=== PATIENT | male | born 1980 | race Caucasian/White ===

== ENCOUNTER 2016-08-31 11:05 | Inpatient (IN) | payer OTHER ==
[~2016-08-31] VITALS: Ht 185.4 cm; Wt 100.3 kg
[2016-09-14] MEDS ORDERED: SODIUM CHLORID 0.9% 500 ML IV PRN (05:45)
[2016-09-14] MEDS ORDERED: VANCOMYCIN 1000 MG/NS 250 ML (for <70 kg) IV SCH ×2 (05:45)
[2016-09-14] MEDS ORDERED: ceFAZolin 2 GM PREMIX 50 ML IV SCH ×2 (05:45→16:00)
[2016-09-14] MEDS ORDERED: METOPROLOL TARTRATE 25 MG TAB PO PRN (05:45)
[2016-09-14] MEDS ORDERED: CHLORHEXIDINE GLUCONATE 2 % 1 PACK (2 CLOTHS) TOPICAL PRN (05:45)
[2016-09-14] MEDS ORDERED: INSULIN HUMAN REGULAR 1,000 UNITS/10 ML VIAL SQ PRN (05:45)
[2016-09-14] MEDS ORDERED: CHLORHEXIDINE GLUCONATE 4% SOLN 120 ML BTL TOPICAL SCH (05:45)
[2016-09-14] MEDS ORDERED: LACTATED RINGER'S 1000 ML IV PRN (05:45)
[2016-09-14] MEDS ORDERED: POVIDONE IODINE 5% (ANTISEPSIS KIT) 4 APPLICATIONS EACH NARE PRN (05:45)
[2016-09-14] MEDS ORDERED: ASPI325T PO (06:24)
[2016-09-14] MEDS ORDERED: TRAM50TA PO (06:24)
[2016-09-14 06:32] VITALS: BP 123/76; PULSE 63; RESP 16; TEMP 98; O2SAT 98
[2016-09-14] MEDS ORDERED: GENTAMICIN SULFATE 80 MG/2 ML VIAL ONE ×2 (07:15)
[2016-09-14] MEDS ORDERED: fentaNYL CITRATE 250 MCG/5 ML AMP ONE (07:34)
[2016-09-14] MEDS ORDERED: ACETAMINOPHEN 1000 MG/100 ML VIAL IV ONE (07:34)
[2016-09-14] MEDS ORDERED: VANCOMYCIN HCL 1000 MG VIAL ONE (08:10)
[2016-09-14] MEDS ORDERED: HYDR-3366 PO (08:43)
[2016-09-14] MEDS ORDERED: SODIUM CHLORIDE 0.9% FLUSH 5 ML FLUSH IVF PRN (08:45)
[2016-09-14] MEDS ORDERED: diphenhydrAMINE HCL 25 MG CAP PO PRN (08:45)
[2016-09-14] MEDS ORDERED: ONDANSETRON HCL 4 MG/2 ML VIAL IVP PRN (08:45)
[2016-09-14] MEDS ORDERED: MORPHINE SULFATE 4 MG/ML INJ IV PUSH PRN (08:45)
[2016-09-14] MEDS ORDERED: Post-op Orders (for Pharmacy) MISC XX ONE (08:45)
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
[2016-09-14] MEDS: SODIUM CHLORIDE 0.9% FLUSH 5 ML FLUSH IVF SCH ×2 (09:00→19:37)
[2016-09-14] MEDS ORDERED: DO NOT ADM ANY ANTICOAGULANT DRUGS PRN (09:15)
[2016-09-14] MEDS ORDERED: *MEPERIDINE 25 MG INJ VIAL PERIprocedural Use ONLY ONE (09:19)
[2016-09-14] MEDS: LACTATED RINGER'S 1000 ML INJ 1,000 ML IV SCH ×2 (10:00→22:27)
[2016-09-14] MEDS ORDERED: *morphine SULFATE 8 MG/ML PERIprocedure ONLY ONE ×2 (10:03→10:14)
[2016-09-14] MEDS ORDERED: diphenhydrAMINE HCL 50 MG/ML VIAL ONE (10:19)
[2016-09-14] MEDS ORDERED: DEXAMETHASONE SOD PHOS 4 MG/ML VIAL ONE (10:23)
[2016-09-14] MEDS ORDERED: DEXAMETHASONE SOD PHOS 4 MG/ML VIAL IV ONE (11:00)
[2016-09-14] MEDS ORDERED: diphenhydrAMINE HCL 50 MG/ML VIAL IV PUSH PRN (11:30)
[2016-09-14] MEDS: KETOROLAC TROMETHAMINE 30 MG/ML (IVP) VIAL IV PUSH SCH ×2 (12:00→19:36)
[2016-09-14] MEDS ORDERED: NEOSTIGMINE 3 MG/3 ML SYR IV ONE (12:03)
[2016-09-14] MEDS ORDERED: PROPOFOL 200 MG/20 ML AMP IV ONE (12:03)
[2016-09-14] MEDS ORDERED: ONDANSETRON HCL 4 MG/2 ML VIAL IV PUSH ONE (12:04)
[2016-09-14 12:58] VITALS: BP 122/75; PULSE 82; RESP 18; TEMP 97.3; O2SAT 92
--- NOTE | 2016-09-14 13:33 | RADRPT ---
EXAM DATE/TIME: 09/14/2016 08:33 [place] COMPARISON: FLUOROSCOPY PORTABLE UP TO 1HR, September 14, 2016, 0:00. INDICATIONS : Hardware removal right clavicle. MEDICAL HISTORY : None. SURGICAL HISTORY : ORIF right clavicle. ENCOUNTER: Initial ACUITY: 1 day PAIN SCORE: Non-responsive. LOCATION: Right clavicle. FINDINGS: There are surgical clips seen in the soft tissues. No residual hardware is identified within the dist al right clavicle. The distal right clavicle is somewhat irregular in appearance. CONCLUSION: 1. No residual hardware identified. Cosme Soriano MD on September 14, 2016 at 13:30 Board Certified Radiologist. This report was verified electronically.
[2016-09-14] MEDS: ACETAMINOPHEN/HYDROcodone 325 MG/10 MG TAB PO PRN ×3 (14:00→22:27)
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
[2016-09-14] MEDS ORDERED: Vancomycin Consult Pharmacy 1 EA OTHER SCH (14:45)
[2016-09-14] MEDS: HYDROmorphone HCL PF 1 MG/ML VIAL IV PUSH PRN ×3 (15:46→23:31)
[2016-09-14 16:00] VITALS: BP 111/62; PULSE 73; RESP 18; TEMP 97.1; O2SAT 92
[2016-09-14] MEDS: CEFEPIME INJ 2,000 MG in SODIUM CHLORIDE 0.9% INJ 100 ML IV SCH ×2 (16:08→22:27)
[2016-09-14] MEDS: VANCOMYCIN INJ 1,500 MG in SODIUM CHLORID 0.9% 500 ML INJ 500 ML IV SCH (17:24)
[2016-09-14] MEDS ORDERED: VANCOMYCIN INJ 1,000 MG in SODIUM CHLOR 0.9% 250 ML INJ 250 ML IV SCH (18:00)
[2016-09-14 20:00] VITALS: BP 103/60; PULSE 78; RESP 17; TEMP 97.8; O2SAT 93
[2016-09-15] VITALS: BP 110/59; PULSE 70; RESP 17; TEMP 97.1; O2SAT 95
[2016-09-15 04:00] VITALS: BP 115/64; PULSE 76; RESP 17; TEMP 96.5; O2SAT 95
[2016-09-15] MEDS: KETOROLAC TROMETHAMINE 30 MG/ML (IVP) VIAL IV PUSH SCH (04:11)
[2016-09-15] MEDS: ACETAMINOPHEN/HYDROcodone 325 MG/10 MG TAB PO PRN ×4 (04:12→21:15)
[2016-09-15] MEDS: VANCOMYCIN INJ 1,500 MG in SODIUM CHLORID 0.9% 500 ML INJ 500 ML IV SCH ×2 (04:12→16:53)
[2016-09-15] MEDS: HYDROmorphone HCL PF 1 MG/ML VIAL IV PUSH PRN ×4 (05:59→23:58)
[2016-09-15 06:48] LABS: ALKALINE PHOSPHATASE 70 U/L (45-117); ALT (GPT) 27 U/L (12-78); ANION GAP 7 MEQ/L (5-15); AST (GOT) 15 U/L (15-37); BLOOD UREA NITROGEN 15 MG/DL (7-18); CHLORIDE 104 MEQ/L (98-107); GLOMERULAR FILTRATION RATE 90 ML/MIN (>89); POTASSIUM 4.6 MEQ/L (3.5-5.1); SODIUM (NA) 141 MEQ/L (136-145); TOTAL BILIRUBIN ADULT 0.4 MG/DL (0.2-1.0)
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
[2016-09-15 08:00] VITALS: BP 152/91; PULSE 92; RESP 16; TEMP 96.8; O2SAT 98
[2016-09-15] MEDS: SODIUM CHLORIDE 0.9% FLUSH 5 ML FLUSH IVF SCH ×2 (08:07→21:00)
[2016-09-15] MEDS: CEFEPIME INJ 2,000 MG in SODIUM CHLORIDE 0.9% INJ 100 ML IV SCH ×3 (08:08→23:51)
[2016-09-15] MEDS: LACTATED RINGER'S 1000 ML INJ 1,000 ML IV SCH ×2 (11:05→23:52)
[2016-09-15 12:00] VITALS: BP 114/66; PULSE 76; RESP 16; TEMP 97.2; O2SAT 95
[2016-09-15 16:00] VITALS: BP 112/69; PULSE 74; RESP 18; TEMP 97; O2SAT 95
[2016-09-15 20:00] VITALS: BP 118/57; PULSE 80; RESP 17; TEMP 97.7; O2SAT 95
[2016-09-16] VITALS: BP 114/73; PULSE 56; RESP 17; TEMP 97.2; O2SAT 96
[2016-09-16] MEDS: VANCOMYCIN INJ 1,500 MG in SODIUM CHLORID 0.9% 500 ML INJ 500 ML IV SCH (05:43)
[2016-09-16] MEDS ORDERED: PHARMACY ORDERED LAB ONE (05:45)
[2016-09-16] MEDS: ACETAMINOPHEN/HYDROcodone 325 MG/10 MG TAB PO PRN ×5 (05:48→23:46)
[2016-09-16 08:00] VITALS: BP 119/79; PULSE 68; RESP 18; TEMP 97.3; O2SAT 97
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
[2016-09-16] MEDS: CEFEPIME INJ 2,000 MG in SODIUM CHLORIDE 0.9% INJ 100 ML IV SCH ×3 (08:59→23:42)
[2016-09-16] MEDS: HYDROmorphone HCL PF 1 MG/ML VIAL IV PUSH PRN ×4 (09:00→20:13)
[2016-09-16] MEDS: SODIUM CHLORIDE 0.9% FLUSH 5 ML FLUSH IVF SCH ×2 (09:00→20:13)
[2016-09-16] MEDS: DOCUSATE SODIUM 100 MG CAP PO PRN (11:55)
[2016-09-16] MEDS: LACTATED RINGER'S 1000 ML INJ 1,000 ML IV SCH ×2 (11:55→23:47)
[2016-09-16 12:00] VITALS: BP 110/77; PULSE 69; RESP 18; TEMP 98; O2SAT 96
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
[2016-09-16] MEDS: CIPROFLOXACIN 750 MG TAB PO SCH ×2 (14:21→20:13)
[2016-09-16 16:00] VITALS: BP 130/81; PULSE 62; RESP 18; TEMP 97.7; O2SAT 96
[2016-09-16] MEDS ORDERED: VANCOMYCIN INJ 2,000 MG in SODIUM CHLORID 0.9% 500 ML INJ 500 ML IV SCH (18:00)
[2016-09-16 20:00] VITALS: BP 118/75; PULSE 66; RESP 20; TEMP 97.6; O2SAT 96
[2016-09-17] VITALS: BP 122/78; PULSE 71; RESP 20; TEMP 98; O2SAT 97
[2016-09-17 08:00] VITALS: BP 126/81; PULSE 78; RESP 16; TEMP 98; O2SAT 99
[2016-09-17] MEDS: CEFEPIME INJ 2,000 MG in SODIUM CHLORIDE 0.9% INJ 100 ML IV SCH (08:20)
[2016-09-17] MEDS: DOCUSATE SODIUM 100 MG CAP PO PRN (08:20)
[2016-09-17] MEDS: CIPROFLOXACIN 750 MG TAB PO SCH (08:20)
[2016-09-17] MEDS: ACETAMINOPHEN/HYDROcodone 325 MG/10 MG TAB PO PRN ×2 (08:21→14:04)
[2016-09-17] MEDS: SODIUM CHLORIDE 0.9% FLUSH 5 ML FLUSH IVF SCH (08:21)
[2016-09-17 12:00] VITALS: BP 125/81; PULSE 85; RESP 18; TEMP 97.2; O2SAT 96
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
[2016-09-17] MEDS: LACTATED RINGER'S 1000 ML INJ 1,000 ML IV SCH (13:45)
[2016-09-17] MEDS ORDERED: CIPR250T52 PO (14:51)
[2016-09-18] MEDS ORDERED: PHARMACY ORDERED LAB ONE (05:45)
== END 2016-09-17 15:24 | DRG 908 ==
LOC: HSDI 09-14 05:28 → N07A 09-14 12:38
PROVIDERS: ADMIT Orthopaedic Surgery Orthopaedic Trauma; ATTEND Orthopaedic Surgery Orthopaedic Trauma
PROC: 0PP904Z Removal of Internal Fixation Device from Right Clavicle, Open Approach (ICD-10-PCS; principal; 2016-09-14 07:36)
PROC: 0JCL0ZZ Extirpation of Matter from Right Upper Leg Subcutaneous Tissue and Fascia, Open Approach (ICD-10-PCS; 2016-09-14 07:36)
DX: T85.79XA Infection and inflammatory reaction due to other internal prosthetic devices, implants and grafts, initial encounter (principal); M86.9 Osteomyelitis, unspecified; M79.5 Residual foreign body in soft tissue; Y79.3 Surgical instruments, materials and orthopedic devices (including sutures) associated with adverse incidents; Z87.891 Personal history of nicotine dependence
CPT/HCPCS: 73000; 76000; 80053; 80202; 87015; 87070; 87077; 87102; 87116; 87176; 87186; 87205; 87206; 94150; J0131; J0690; J0692; J1100; J1170; J1200; J1580; J1885; J2175; J2270; J2405; J2710; J3010; J3370; J7040; J7050; J7120